=== PATIENT | male | born 1950 | race Caucasian/White ===

== ENCOUNTER 2025-01-14 08:00 | Day surgery (SDC) | payer MEDICARE, OTHER, SELFPAY ==
[2025-01-13 14:12] VITALS: BMI 28.3
[2025-01-14] VITALS (11 sets, daily range): BP systolic 100–128; BP diastolic 66–88; PULSE 60–72; RESP 14–29; TEMP 36.4–36.6; O2SAT 92–97; BMI 28.3
[2025-01-14] MEDS: SODIUM CHLORIDE 0.9% 500 ML 500 ML 20 ML IV (08:30)
[2025-01-14] MEDS: Ampicillin Inj 2,000 MG in SODIUM CHLORIDE 0.9% (POP) 100 ML 200 MG IV (08:42)
[2025-01-14] MEDS: GENTAMICIN/NS 80 MG IVPB 80 MG in PRE-MIXED 1 BAG 50 MG IV (09:15)
[2025-01-14] MEDS: MIDAZOLAM INJ 1 MG/ML VIAL 2 ML (ASD USE ONLY) 2 MG IVP (10:02)
[2025-01-14] MEDS: fentaNYL CIT INJ 50 mCg/ML AMP 2ML (ASD USE ONLY) IVP (10:02)
== END 2025-01-14 11:05 | disposition home or self-care (01) ==
PROVIDERS: PCP Internal Medicine; Referring Provider Specialist; Visit Provider Specialist
PROC: 0DBE8ZX Excision of Large Intestine, Via Natural or Artificial Opening Endoscopic, Diagnostic (ICD-10-PCS; CPT 45380; principal; 2025-01-14 10:00)
DX: Z12.11 Encounter for screening for malignant neoplasm of colon (principal); K51.00 Ulcerative (chronic) pancolitis without complications; K63.89 Other specified diseases of intestine; K62.89 Other specified diseases of anus and rectum; K64.1 Second degree hemorrhoids; K57.30 Diverticulosis of large intestine without perforation or abscess without bleeding; E11.9 Type 2 diabetes mellitus without complications; Z86.73 Personal history of transient ischemic attack (TIA), and cerebral infarction without residual deficits; Z79.84 Long term (current) use of oral hypoglycemic drugs
CPT/HCPCS: 45380; A4649; J0290; J1200; J1580; J2250; J3010; J7999